=== PATIENT | male | born 1965 | race Caucasian/White ===

== ENCOUNTER 2019-06-26 19:30 | Emergency (ER) | payer OTHER ==
[~2019-06-26] VITALS: Ht 182.9 cm; Wt 111.1 kg
[2019-06-26] MEDS ORDERED: COZAAR25 MG (20:45)
[2019-06-26] MEDS ORDERED: CRESTOR5 MG (20:45)
== END 2019-06-26 21:16 | disposition home or self-care (01) ==
LOC: ER 19:30
DX: S91.322A Laceration with foreign body, left foot, initial encounter (principal); W45.8XXA Other foreign body or object entering through skin, initial encounter; Y93.89 Activity, other specified; Y92.89 Other specified places as the place of occurrence of the external cause; Y99.8 Other external cause status